=== PATIENT | male | born 1950 | race Caucasian/White ===

== ENCOUNTER 2016-12-25 17:23 | Emergency (ER) | payer OTHER ==
--- NOTE | ~2016-12-25 | CR229 ---
[facility]. [facility] A Service of [facility] & [facility] RADIOLOGY TEXT RESULTS PATIENT: CHARLIE PALMA LOCATION: SED : 54 UNIT #: [id number] AGE: [address]: Kailey Gotti APRN SEX: M ORDER DR: [id number] [place] [id number] E MR#: [id number] Acc #: [id number] NAME: CHARLIE PALMA : 1950 SEX: M STUDY DATE/TIME: 12/25/2016 17:38 UNIT: SED ROOM: STUDY DESCRIPTION: CR Shoulder Min 2 View Lt Attending Physician: Kailey Gotti A.P.R.N. Ordering Physician: Koko Castellanos M.D. Primary Care Physician: Timur Sharpe M.D. MEDICAL IMAGING REPORT This report is preliminary unless electronic signature is present. EXAM Left shoulder, 12/25/2016 HISTORY 66-year-old male with left shoulder pain status post fall today. COMPARISON None. FINDINGS 3 views of the left shoulder demonstrate no acute fracture or dislocation. Mild degenerative change of the acromioclavicular joint. Visualized left ribs appear intact. Soft tissues are unremarkable. IMPRESSION No acute fracture or dislocation. Mild acromioclavicular joint arthrosis. Dictated by... Ricardo Estevez M.D. THIS IS AN ELECTRONICALLY VERIFIED REPORT Ricardo Estevez M.D. at 12/26/2016 10:57 PM VAMSHI/corey TD: 12/25/2016 21:51 JOB #: [id number] MEDICAL IMAGING REPORT Page 1 of 1
[~2016-12-25 17:23] MED LIST: NO MEDICATIONS; ZOCOR20 MG PO
== END 2016-12-25 18:42 | disposition home or self-care (01) ==
LOC: SED 17:23
DX: S43.492A Other sprain of left shoulder joint, initial encounter (principal); W19.XXXA Unspecified fall, initial encounter; Y92.009 Unspecified place in unspecified non-institutional (private) residence as the place of occurrence of the external cause
CPT/HCPCS: 73030; 99283